=== PATIENT | male | born 1945 | race Caucasian/White ===

== ENCOUNTER 2019-12-19 07:11 | Outpatient (CLI) | payer MEDICARE, SELFPAY ==
[2019-12-19 07:33] LABS: Basophils Absolute Auto 0.04 K/mm3 (0.00-0.10); Basophils Percent Auto 0.6 % (0.0-1.0); Eosinophils Percent Auto 1.5 % (1.0-6.0); Hematocrit 34.4 % (37.0-46.0); Hemoglobin 11.8 g/dL (12.4-15.3); Immature Granulocyte Absolute 0.02 K/mm3 (0.00-0.00); Immature Granulocyte Percent A 0.3 % (0.0-0.0); Lymphocytes Absolute Auto 1.28 K/mm3 (1.10-4.50); Lymphocytes Percent Auto 19.6 % (18.0-42.0); Mean Corpuscular HGB Conc 34.3 g/dL (32.0-36.0); Mean Corpuscular Hemoglobin 31.2 pg (27.0-31.0); Mean Platelet Volume 8.6 fl (8.7-11.0); Monocytes Absolute Auto 0.77 K/mm3 (0.10-0.90); Monocytes Percent Auto 11.8 % (2.0-11.0); Neutrophils Absolute Auto 4.3 K/mm3 (1.7-7.2); Neutrophils Percent Auto 66.2 % (50.0-70.0); Platelet Count Result 324 K/mm3 (150-420); Red Blood Count 3.78 M/mm3 (4.70-6.10); Red Cell Distribution Width 12.8 % (11.6-14.4); White Blood Count 6.5 K/mm3 (4.8-10.8)
[2019-12-19 09:22] LABS: Alanine Aminotransferase 22 U/L (16-63); Albumin Level 3.9 g/dL (3.4-5.0); Alkaline Phosphatase 62 U/L (46-116); Anion Gap 9 mmol/L (8-16); Aspartate Amino Transferase 13 U/L (15-37); Bilirubin,Total 0.7 mg/dL (0.00-1.00); Blood Urea Nitrogen 18 mg/dL (7-18); Calcium 8.7 mg/dL (8.5-10.1); Carbon Dioxide 30 mmol/L (21-32); Chloride 101 mmol/L (98-108); Cholesterol 140 mg/dL (0-200); Estimated Glomerular Filt Rate 59; Glucose 90 mg/dL (70-99); HDL Direct 60 mg/dL (40-60); LDL Cholesterol Calculated 66 mg/dL (<130); Osmolality Calculated 291 mOsm/kg (285-295); Potassium 3.8 mmol/L (3.5-5.1); Sodium 140 mmol/L (136-145); Total Protein 6.8 g/dL (6.4-8.2); Triglycerides 72 mg/dL (0-150)
[2019-12-19 09:33] LABS: Prostate Specific Antigen < 0.1 ng/mL (< OR = 4.0)
== END 2019-12-19 07:12 | disposition home or self-care (01) ==
PROVIDERS: PCP Nurse Practitioner Family; Visit Provider Nurse Practitioner Family
DX: Z85.46 Personal history of malignant neoplasm of prostate (principal); I10 Essential (primary) hypertension; Z12.5 Encounter for screening for malignant neoplasm of prostate
CPT/HCPCS: 36415; 80053; 80061; 84153; 85025; G0103

== ENCOUNTER 2020-03-30 12:41 | Outpatient (CLI) | payer MEDICARE, SELFPAY ==
--- NOTE | ~2020-03-30 | XR_ITS ---
EXAMINATION: XR shoulder LT min 2V DATE: 03/30/2020 13:15 INDICATION: Polyarthritis. Left shoulder pain. TECHNIQUE: 4 views of left shoulder were obtained. COMPARISON: None. FINDINGS: Bone alignment is normal. No fracture. There is mild osteoarthritis of glenohumeral joint a nd acromioclavicular joint. There is calcific tendinitis of the rotator cuff. IMPRESSION: 1. Mild polyarticular osteoarthritis. 2. Calcific tendinitis of left rotator cuff. Reviewed, dictated and finalized at location A. PING BAG FILLER
--- NOTE | ~2020-03-30 | XR_ITS ---
XR hip BI wo pelvis DATE: 03/30/2020 13:15 INDICATION: Bilateral hip pain TECHNIQUE: AP and lateral views of each hip COMPARISON: None FINDINGS: No fracture or dislocation, avascular necrosis or bone destruction. Surgical clips overlie the pubic symphysis and right pelvis. IMPRESSION: No fracture or dislocation or bone destruction Reviewed, dictated and finalized at location A. TEACHER
--- NOTE | ~2020-03-30 | XR_ITS ---
EXAMINATION: XR shoulder RT min 2V DATE: 03/30/2020 13:14 INDICATION: Right shoulder pain. Polyarthritis. TECHNIQUE: 4 views of right shoulder were obtained. COMPARISON: None. FINDINGS: Bone alignment is normal. No fracture. Glenohumeral joint is normal. There is mild acromioc lavicular joint osteoarthritis. IMPRESSION: 1. Mild right acromioclavicular joint osteoarthritis. Reviewed, dictated and finalized at location A. EC MANAGER
== END 2020-03-30 12:42 | disposition home or self-care (01) ==
PROVIDERS: PCP Family Medicine; Visit Provider Family Medicine
DX: M13.0 Polyarthritis, unspecified (principal)
CPT/HCPCS: 73030; 73521

== ENCOUNTER 2020-04-09 10:41 | Outpatient (CLI) | payer MEDICARE, SELFPAY ==
[2020-04-09 11:47] LABS: CRP 17.8 mg/dL (0.0-0.9)
[2020-04-09 11:53] LABS: Erythrocyte Sedimentation Rate 56 mm/hr (0-20)
== END 2020-04-09 10:42 | disposition home or self-care (01) ==
PROVIDERS: PCP Family Medicine; Visit Provider Family Medicine
DX: M13.0 Polyarthritis, unspecified (principal)
CPT/HCPCS: 36415; 85652; 86140

== ENCOUNTER 2021-02-20 09:12 | Outpatient (CLI) | payer MEDICARE, SELFPAY ==
[2021-02-20 09:25] LABS: Basophils Absolute Auto 0.03 K/mm3 (0.00-0.10); Basophils Percent Auto 0.3 % (0.0-1.0); Eosinophils Absolute Auto 0.03 K/mm3 (0.02-0.50); Eosinophils Percent Auto 0.3 % (1.0-6.0); Hematocrit 35.2 % (37.0-46.0); Hemoglobin 11.9 g/dL (12.4-15.3); Immature Granulocyte Absolute 0.08 K/mm3 (0.00-0.00); Immature Granulocyte Percent A 0.7 % (0.0-0.0); Lymphocytes Absolute Auto 0.84 K/mm3 (1.10-4.50); Lymphocytes Percent Auto 7.1 % (18.0-42.0); Mean Corpuscular HGB Conc 33.8 g/dL (32.0-36.0); Mean Corpuscular Hemoglobin 31.2 pg (27.0-31.0); Mean Corpuscular Volume 92.4 fL (78.0-102.0); Mean Platelet Volume 8.1 fl (8.7-11.0); Monocytes Absolute Auto 1.06 K/mm3 (0.10-0.90); Neutrophils Absolute Auto 9.8 K/mm3 (1.7-7.2); Neutrophils Percent Auto 82.6 % (50.0-70.0); Platelet Count Result 382 K/mm3 (150-420); Red Blood Count 3.81 M/mm3 (4.70-6.10); White Blood Count 11.8 K/mm3 (4.8-10.8)
[2021-02-20 10:10] LABS: Alanine Aminotransferase 23 U/L (16-63); Albumin Level 3.9 g/dL (3.4-5.0); Alkaline Phosphatase 60 U/L (46-116); Anion Gap 9 mmol/L (8-16); Aspartate Amino Transferase 17 U/L (15-37); Bilirubin,Total 0.5 mg/dL (0.00-1.00); Blood Urea Nitrogen 16 mg/dL (7-18); Calcium 9.1 mg/dL (8.5-10.1); Carbon Dioxide 29 mmol/L (21-32); Chloride 95 mmol/L (98-108); Estimated Glomerular Filt Rate > 60; GGT 26 U/L (15-85); Glucose 74 mg/dL (70-99); Lactate Dehydrogenase 196 U/L (85-227); Osmolality Calculated 276 mOsm/kg (285-295); Potassium 3.7 mmol/L (3.5-5.1); Sodium 133 mmol/L (136-145)
[2021-02-20 10:16] LABS: Prostate Specific Antigen < 0.1 ng/mL (< OR = 4.0)
== END 2021-02-20 09:13 | disposition home or self-care (01) ==
LOC: CHSLAB 09:15
PROVIDERS: PCP Family Medicine; Visit Provider Nurse Practitioner Family
DX: C61 Malignant neoplasm of prostate (principal); M35.3 Polymyalgia rheumatica; I10 Essential (primary) hypertension
CPT/HCPCS: 36415; 80053; 82977; 83615; 84153; 85025

== ENCOUNTER 2021-06-06 08:54 | Outpatient (CLI) | payer MEDICARE, SELFPAY ==
--- NOTE | ~2021-06-06 | XR_ITS ---
EXAMINATION: XR hand BI arthritis min 3V DATE: 06/06/2021 09:27 INDICATION: Bilateral hand pain. TECHNIQUE: 4 views of the right hand and 4 views of the left hand on a total of 7 radiographs were ob tained. COMPARISON: None. FINDINGS: RIGHT HAND: Bone alignment is normal. No fracture. There is mild osteoporosis of first carpometacarpa l joint, first, second, and fourth metacarpophalangeal joints, second proximal interphalangeal joint, and fifth distal interphalangeal joint and moderate osteoarthritis of first interphalangeal joint. LEFT HAND: Bone alignment is normal. No fracture. There is mild osteoarthritis of first carpometacarp al joint and first and fourth metacarpophalangeal joints. There is moderate osteoarthritis of second and third metacarpophalangeal joints, first interphalangeal joint, and third proximal interphalangeal joint. There is mild osteoarthritis of second distal interphalangeal joint. IMPRESSION: 1. Polyarticular osteoarthritis. Reviewed, dictated and finalized at location A.
[2021-06-06 09:12] LABS: Hematocrit 28.2 % (37.0-46.0); Hemoglobin 9.1 g/dL (12.4-15.3); Mean Corpuscular HGB Conc 32.3 g/dL (32.0-36.0); Mean Corpuscular Hemoglobin 28.9 pg (27.0-31.0); Mean Corpuscular Volume 89.5 fL (78.0-102.0); Platelet Count Result 472 K/mm3 (150-420); Red Blood Count 3.15 M/mm3 (4.70-6.10); Red Cell Distribution Width 13.1 % (11.6-14.4); White Blood Count 12.8 K/mm3 (4.8-10.8)
[2021-06-06 09:52] LABS: Alanine Aminotransferase 15 U/L (16-63); Albumin Level 3.5 g/dL (3.4-5.0); Alkaline Phosphatase 59 U/L (46-116); Anion Gap 9 mmol/L (8-16); Aspartate Amino Transferase 11 U/L (15-37); Bilirubin,Total 0.4 mg/dL (0.00-1.00); Blood Urea Nitrogen 18 mg/dL (7-18); CRP 5.2 mg/dL (0.0-0.9); Calcium 8.9 mg/dL (8.5-10.1); Carbon Dioxide 27 mmol/L (21-32); Chloride 96 mmol/L (98-108); Estimated Glomerular Filt Rate > 60; Glucose 88 mg/dL (70-99); NT Pro B Type Natriuretic Pept 282 pg/mL (0-450); Osmolality Calculated 274 mOsm/kg (285-295); Potassium 3.9 mmol/L (3.5-5.1); Sodium 132 mmol/L (136-145); Total Protein 6.6 g/dL (6.4-8.2)
[2021-06-06 10:07] LABS: Rheumatoid Factor Screen Negative (Negative)
== END 2021-06-06 08:55 | disposition home or self-care (01) ==
LOC: CHSLAB 08:57
PROVIDERS: PCP Family Medicine; Visit Provider Family Medicine
DX: M79.641 Pain in right hand (principal); M79.642 Pain in left hand; M35.3 Polymyalgia rheumatica; I10 Essential (primary) hypertension; I50.9 Heart failure, unspecified
CPT/HCPCS: 36415; 73130; 80053; 83880; 85027; 86038; 86140; 86430

== ENCOUNTER 2021-07-24 14:28 | Outpatient (CLI) | payer MEDICARE, SELFPAY ==
[2021-07-24 14:50] LABS: Hematocrit 30.6 % (37.0-46.0); Hemoglobin 9.9 g/dL (12.4-15.3); Mean Corpuscular HGB Conc 32.4 g/dL (32.0-36.0); Mean Corpuscular Hemoglobin 27.6 pg (27.0-31.0); Mean Corpuscular Volume 85.2 fL (78.0-102.0); Mean Platelet Volume 8.1 fl (8.7-11.0); Platelet Count Result 421 K/mm3 (150-420); Red Blood Count 3.59 M/mm3 (4.70-6.10); Red Cell Distribution Width 14.9 % (11.6-14.4); White Blood Count 9.1 K/mm3 (4.8-10.8)
[2021-07-24 15:23] LABS: HIV 1 P24 AG Negative (Negative); HIV 1/2 AB Negative (Negative)
[2021-07-24 15:29] LABS: Thyroid Stimulating Hormone Reflex 1.01 u/IU/mL (0.36-3.74)
[2021-07-24 15:31] LABS: Alanine Aminotransferase 19 U/L (16-63); Albumin Level 3.7 g/dL (3.4-5.0); Alkaline Phosphatase 72 U/L (46-116); Anion Gap 8 mmol/L (8-16); Aspartate Amino Transferase 14 U/L (15-37); Bilirubin,Total 0.4 mg/dL (0.00-1.00); Blood Urea Nitrogen 20 mg/dL (7-18); Calcium 8.8 mg/dL (8.5-10.1); Carbon Dioxide 29 mmol/L (21-32); Chloride 99 mmol/L (98-108); Estimated Glomerular Filt Rate 60; Glucose 110 mg/dL (70-99); Osmolality Calculated 285 mOsm/kg (285-295); Potassium 3.9 mmol/L (3.5-5.1); Sodium 136 mmol/L (136-145); Total Protein 7.1 g/dL (6.4-8.2)
[2021-07-24 15:32] LABS: Prostate Specific Antigen < 0.1 ng/mL (< OR = 4.0)
[2021-07-26 12:10] LABS: NIL 0.01 IU/mL; Quantiferon TB Plus, 1T NEGATIVE (NEGATIVE); TB1-NIL 0.01 IU/mL
[2021-07-27 19:53] LABS: Hepatitis A Antibody IgM Nonreactive; Hepatitis B Core Antibody Nonreactive (Nonreactive); Hepatitis B Surface Antigen Nonreactive (Nonreactive); Hepatitis C Signal to Cutoff 0.01 ratio (<1.00); Hepatitis C Virus Antibody Nonreactive (Nonreactive)
== END 2021-07-24 14:29 | disposition home or self-care (01) ==
LOC: CHSLAB 14:30
PROVIDERS: PCP Family Medicine; Visit Provider Family Medicine
DX: R63.4 Abnormal weight loss (principal); R35.1 Nocturia; E11.9 Type 2 diabetes mellitus without complications
CPT/HCPCS: 36415; 80053; 80074; 84153; 84443; 85027; 86140; 86480; 86703

== ENCOUNTER 2022-05-13 09:23 | Outpatient (CLI) | payer MEDICARE, SELFPAY ==
[2022-05-13 09:53] LABS: Hematocrit 27.4 % (37.0-46.0); Hemoglobin 8.8 g/dL (12.4-15.3); Mean Corpuscular HGB Conc 32.1 g/dL (32.0-36.0); Mean Corpuscular Hemoglobin 26.1 pg (27.0-31.0); Mean Corpuscular Volume 81.3 fL (78.0-102.0); Mean Platelet Volume 7.9 fl (8.7-11.0); Platelet Count Result 448 K/mm3 (150-420); Red Blood Count 3.37 M/mm3 (4.70-6.10); Red Cell Distribution Width 16.6 % (11.6-14.4); White Blood Count 7.6 K/mm3 (4.8-10.8)
[2022-05-13 10:31] LABS: Alanine Aminotransferase 16 U/L (16-63); Albumin Level 3.4 g/dL (3.4-5.0); Alkaline Phosphatase 85 U/L (46-116); Anion Gap 10 mmol/L (8-16); Aspartate Amino Transferase 14 U/L (15-37); Bilirubin,Total 0.4 mg/dL (0.00-1.00); Blood Urea Nitrogen 19 mg/dL (7-18); Calcium 8.7 mg/dL (8.5-10.1); Carbon Dioxide 27 mmol/L (21-32); Chloride 99 mmol/L (98-108); Estimated Glomerular Filt Rate > 60; Glucose 111 mg/dL (70-99); Osmolality Calculated 285 mOsm/kg (285-295); Potassium 4.3 mmol/L (3.5-5.1); Sodium 136 mmol/L (136-145); Total Protein 7.1 g/dL (6.4-8.2)
== END 2022-05-13 09:24 | disposition home or self-care (01) ==
LOC: CHSLAB 09:26
PROVIDERS: PCP Family Medicine; Visit Provider Family Medicine
DX: D50.9 Iron deficiency anemia, unspecified (principal)
CPT/HCPCS: 36415; 80053; 85027

== ENCOUNTER 2022-05-14 08:53 | Outpatient (CLI) | payer MEDICARE, SELFPAY ==
[2022-05-14 09:00] LABS: Occult Blood Negative (Negative)
== END 2022-05-14 08:54 | disposition home or self-care (01) ==
LOC: CHSLAB 08:54
PROVIDERS: PCP Family Medicine; Visit Provider Family Medicine
DX: D64.9 Anemia, unspecified (principal)
CPT/HCPCS: 82272

== ENCOUNTER 2022-07-26 08:59 | Emergency (ER) | payer MEDICARE, SELFPAY ==
[2022-07-26 09:11] VITALS: BP 139/70; PULSE 67; RESP 20; TEMP 36.4; O2SAT 100
--- NOTE | 2022-07-26 09:33 | ECG_ITS ---
Measurements Intervals [place] Rate: 58 P: 70 [place]: 188 QRS: 48 QRSD: 95 T: 63 QT: 418 QTc: 413 Interpretive Statements SINUS BRADYCARDIA WITH SINUS ARRHYTHMIA EARLY PRECORDIAL R/S TRANSITION BORDERLINE ECG NO PREVIOUS ECG AVAILABLE FOR COMPARISON Electronically Signed On 07-26-2022 16:49:38 CDT by Homar Matthew D.O.
[2022-07-26 09:45] LABS: Basophils Absolute Auto 0.03 K/mm3 (0.00-0.10); Basophils Percent Auto 0.4 % (0.0-1.0); Eosinophils Absolute Auto 0.03 K/mm3 (0.02-0.50); Eosinophils Percent Auto 0.4 % (1.0-6.0); Hemoglobin 9.3 g/dL (12.4-15.3); Immature Granulocyte Absolute 0.04 K/mm3 (0.00-0.00); Immature Granulocyte Percent A 0.5 % (0.0-0.0); Lymphocytes Absolute Auto 0.91 K/mm3 (1.10-4.50); Lymphocytes Percent Auto 11.3 % (18.0-42.0); Mean Corpuscular HGB Conc 32.1 g/dL (32.0-36.0); Mean Corpuscular Hemoglobin 27.2 pg (27.0-31.0); Mean Corpuscular Volume 84.8 fL (78.0-102.0); Mean Platelet Volume 7.8 fl (8.7-11.0); Monocytes Percent Auto 6.2 % (2.0-11.0); Neutrophils Absolute Auto 6.6 K/mm3 (1.7-7.2); Neutrophils Percent Auto 81.2 % (50.0-70.0); Platelet Count Result 373 K/mm3 (150-420); Red Blood Count 3.42 M/mm3 (4.70-6.10); Red Cell Distribution Width 15.9 % (11.6-14.4); White Blood Count 8.1 K/mm3 (4.8-10.8)
[2022-07-26 10:05] LABS: Alanine Aminotransferase 16 U/L (16-63); Albumin Level 3.5 g/dL (3.4-5.0); Alkaline Phosphatase 83 U/L (46-116); Anion Gap 9 mmol/L (8-16); Aspartate Amino Transferase 13 U/L (15-37); Bilirubin,Total 0.4 mg/dL (0.00-1.00); Blood Urea Nitrogen 23 mg/dL (7-18); Calcium 8.7 mg/dL (8.5-10.1); Carbon Dioxide 27 mmol/L (21-32); Chloride 100 mmol/L (98-108); Estimated CRCL calculation 56 ml/min; Estimated Glomerular Filt Rate > 60; Glucose 106 mg/dL (70-99); Osmolality Calculated 285 mOsm/kg (285-295); Potassium 4.1 mmol/L (3.5-5.1); Sodium 136 mmol/L (136-145); Total Protein 7.3 g/dL (6.4-8.2)
[2022-07-26 10:27] LABS: Appearance Urine Clear (Clear); Bilirubin Urine Negative (Negative); Blood Urine Negative (Negative); Color Urine Yellow (Yellow); Glucose Urine UA Negative (Negative); Ketones Urine Negative (Negative); Leukocyte Esterase Ur Negative LEU/UL (Negative); Nitrate Urine Negative (Negative); Protein Urine Negative (Negative); Specific Grav Ur 1.015 (1.010-1.020); Urobilinogen Urine 0.2 mg/dL (0.2-1.0); pH Urine 6.5 (5.0-8.0)
[2022-07-26 10:30] LABS: Add Urine Microscopic? NO
--- NOTE | 2022-07-26 10:38 | ED.DIZZY ---
HPI - Dizziness General Chief Complaint: Dizziness Stated Complaint: nausea Time Seen by Provider: 07/26/22 09:04 Source: patient and family Mode of arrival: ambulatory Limitations: no limitations History of Present Illness MD elicited complaint: lightheadedness Description: sense of movement and lightheadedness Related Data Home Medications Medication Instructions Recorded Confirmed amlodipine 10 mg tablet 10 mg PO DAILY 12/15/19 07/26/22 aspirin 81 mg tablet,delayed 81 mg PO DAILY 12/15/19 07/26/22 release (Adult Aspirin Regimen) minoxidil 2.5 mg tablet 2.5 mg PO DAILY 12/15/19 07/26/22 potassium chloride 20 mEq 20 meq PO DAILY 12/15/19 07/26/22 tablet,extended release telmisartan 80 mg tablet 80 mg PO DAILY 12/15/19 07/26/22 furosemide 20 mg tablet 10 mg PO QAM 07/24/21 07/26/22 Allergies Allergy/AdvReac Type Severity Reaction Status Date / Time No Known Allergies Allergy Verified 06/18/22 07:40 Review of Systems Review of Systems: All systems reviewed & are unremarkable except as noted in HPI and below PMFSH Past Medical History Medical History Cochlear implant in place HTN (hypertension) Prostate cancer Dx'd in 2001, in remission Family History Family History Mother Hypertension, Onset Age: 87 Family history of kidney disease, Onset Age: 87 Patient's mother is , Onset Age: 87 Father Family history of kidney disease, Onset Age: 89 Family history of coronary artery disease, Onset Age: 89 Patient's father is , Onset Age: 89 Social History Social History Smoking status: Former smoker Tobacco type: cigarettes Smoking end date: 03/02/89 Alcohol intake: never Substance use: never Substance use type: does not use Lack of Transportation: No Lack of Food: Never True Current Housing: I Have Housing Concerned About Future Housing: No Difficulty Paying Gas/Electric Bills: No Difficulty Paying for Meds: No Currently Unemployed: No Education: Master's Degree or Higher Difficulty w/ Childcare or Family Care: No Living arrangements: alone Occupation/Education: retired Exam Const: General: healthy appearing Nutritional Appearance: well nourished Orientation/consciousness: patient oriented x3 Limitations: no limitations HENMT: Head: normal to inspection Eyes: Conjunctivae: conjunctivae normal Pupils: Equal, round and reactive pupils present EOM: EOMs intact bilaterally Neck: Neck: normal visual inspection Chest: Chest palpation & inspection: normal inspection of the chest Resp: Effort & Inspection: normal respiratory effort Auscultation: clear to auscultation bilaterally Cardio: Rate: regular rate Rhythm: regular rhythm GI: Auscultation: normal bowel sounds : General: Yes bladder normal to palpation Male General Exam: Yes normal external exam Skin: General skin exam: normal color Rashes: no rashes Neuro: General: patient oriented x3 Cranial nerves: Yes Nystagmus not present Speech: normal speech Extrem: General: normal to inspection Psych: Mental Status: mental status grossly normal Affect: normal affect Course Course Emergency Course: Labs reviewed with patient and family patient's family discussed concerns about him living alone and advised patient to follow with primary to our help with some issues of of lightheadedness and concerns for falls. Otherwise EKG with normal sinus rhythm labs reviewed his H&H is stable with the rest of his blood work and urinary within normal limits. Patient's earlier symptoms have subsequently subsided and patient feels like he is back to his baseline. Vital Signs Vital signs: Vital Signs Temperature 36.4 C L 07/26/22 09:11 Pulse Rate 67 07/26/22 09:11 Respiratory Rate 20 07/26
[2022-07-26 11:07] VITALS: BP 137/67; PULSE 62; RESP 20; TEMP 36.9; O2SAT 100
== END 2022-07-26 11:11 | disposition home or self-care (01) ==
PROVIDERS: Emergency Provider Emergency Medicine; PCP Family Medicine
DX: D50.9 Iron deficiency anemia, unspecified (principal); R42 Dizziness and giddiness; I10 Essential (primary) hypertension; Z85.46 Personal history of malignant neoplasm of prostate; Z96.21 Cochlear implant status; Z87.891 Personal history of nicotine dependence; Z79.82 Long term (current) use of aspirin
CPT/HCPCS: 36415; 80053; 81003; 83605; 85025; 93005; 99283

== ENCOUNTER 2022-09-24 09:30 | Outpatient (CLI) | payer MEDICARE, SELFPAY ==
[2022-09-24 09:43] LABS: Basophils Absolute Auto 0.05 K/mm3 (0.00-0.10); Basophils Percent Auto 0.8 % (0.0-1.0); Eosinophils Absolute Auto 0.14 K/mm3 (0.02-0.50); Eosinophils Percent Auto 2.3 % (1.0-6.0); Hematocrit 28.4 % (37.0-46.0); Hemoglobin 9.3 g/dL (12.4-15.3); Immature Granulocyte Absolute 0.03 K/mm3 (0.00-0.00); Immature Granulocyte Percent A 0.5 % (0.0-0.0); Lymphocytes Absolute Auto 1.18 K/mm3 (1.10-4.50); Lymphocytes Percent Auto 19.3 % (18.0-42.0); Mean Corpuscular HGB Conc 32.7 g/dL (32.0-36.0); Mean Corpuscular Hemoglobin 27.9 pg (27.0-31.0); Mean Corpuscular Volume 85.3 fL (78.0-102.0); Mean Platelet Volume 7.8 fl (8.7-11.0); Monocytes Absolute Auto 0.76 K/mm3 (0.10-0.90); Monocytes Percent Auto 12.5 % (2.0-11.0); Neutrophils Absolute Auto 3.9 K/mm3 (1.7-7.2); Neutrophils Percent Auto 64.6 % (50.0-70.0); Platelet Count Result 340 K/mm3 (150-420); Red Blood Count 3.33 M/mm3 (4.70-6.10); Red Cell Distribution Width 15.3 % (11.6-14.4); White Blood Count 6.1 K/mm3 (4.8-10.8)
[2022-09-24 10:31] LABS: Occult Blood Negative (Negative)
[2022-09-24 10:39] LABS: Ferritin 38 ng/mL (26-388); Iron 38 ug/dL (65-175); Percent Iron Saturation 15 % (12-57)
== END 2022-09-24 09:31 | disposition home or self-care (01) ==
LOC: CHSLAB 09:32
PROVIDERS: PCP Family Medicine; Visit Provider Family Medicine
DX: D50.9 Iron deficiency anemia, unspecified (principal); R19.7 Diarrhea, unspecified
CPT/HCPCS: 36415; 82272; 82728; 83540; 83550; 85025

== ENCOUNTER 2022-10-07 10:22 | Outpatient (CLI) | payer MEDICARE, SELFPAY ==
[2022-10-07 10:28] VITALS: BMI 25.7
[2022-10-07] MEDS: IRON SUCROSE COMPLEX 200 MG in SODIUM CHLORIDE 0.9% IV 250 ML 166.67 MG IVPB (10:40)
[2022-10-07 10:43] VITALS: BP 140/59; PULSE 78; RESP 14; TEMP 35.9; O2SAT 100
--- NOTE | 2022-10-07 12:12 | PC.NURSE ---
Patient here for #1 of 3 IV Venofer infusions. Education given. All concerns answered. IV Venofer administered. SEE MAR. Tolerated well. Will return Thu10/10/22 for #2 of 3. Safe exit of hospital per amb/self.
== END 2022-10-07 10:23 | disposition home or self-care (01) ==
PROVIDERS: PCP Family Medicine; Visit Provider Family Medicine
DX: D50.9 Iron deficiency anemia, unspecified (principal)
CPT/HCPCS: 96365; 96366; J1756; J7050

== ENCOUNTER 2022-10-10 09:53 | Outpatient (CLI) | payer MEDICARE, SELFPAY ==
--- NOTE | 2022-10-10 10:00 | PC.NURSE ---
Here for outpatient iron
[2022-10-10] MEDS: IRON SUCROSE COMPLEX 200 MG in SODIUM CHLORIDE 0.9% IV 250 ML 166.67 MG IVPB (10:23)
[2022-10-10 10:29] VITALS: BMI 24.7
[2022-10-10 10:30] VITALS: BP 120/56; PULSE 67; RESP 18; TEMP 36.4; O2SAT 95
--- NOTE | 2022-10-10 12:00 | PC.NURSE ---
infusion completed, tolerated well, ambulatory for discharge to home, saline lock discontinued, no bleeding
== END 2022-10-10 09:54 | disposition home or self-care (01) ==
LOC: CHSTREATRM 09:56
PROVIDERS: PCP Family Medicine; Visit Provider Family Medicine
DX: D50.9 Iron deficiency anemia, unspecified (principal)
CPT/HCPCS: 96365; 96366; J1756; J7050

== ENCOUNTER 2022-10-13 10:36 | Outpatient (CLI) | payer MEDICARE, SELFPAY ==
[2022-10-13 10:56] VITALS: BP 126/61; PULSE 60; RESP 14; TEMP 36.4; O2SAT 100
[2022-10-13] MEDS: IRON SUCROSE COMPLEX 200 MG in SODIUM CHLORIDE 0.9% IV 250 ML 166.67 MG IVPB (11:00)
[2022-10-13 11:02] VITALS: BMI 25.7
--- NOTE | 2022-10-13 12:33 | PC.NURSE ---
Patient here for #3 of 3 IV Venofer infusion. No concerns voiced. Reports did very well with the last two infusions. IV Venofer administered. SEE MAR. Tolerated well. Safe exit of hospital per self/amb.
== END 2022-10-13 10:37 | disposition home or self-care (01) ==
LOC: CHSTREATRM 10:38
PROVIDERS: PCP Family Medicine; Visit Provider Family Medicine
DX: D50.9 Iron deficiency anemia, unspecified (principal)
CPT/HCPCS: 96365; 96366; J1756; J7050

== ENCOUNTER 2022-11-13 08:53 | Outpatient (CLI) | payer MEDICARE, SELFPAY ==
[2022-11-13 09:06] LABS: Basophils Absolute Auto 0.04 K/mm3 (0.00-0.10); Basophils Percent Auto 0.7 % (0.0-1.0); Eosinophils Absolute Auto 0.09 K/mm3 (0.02-0.50); Eosinophils Percent Auto 1.5 % (1.0-6.0); Hematocrit 31.2 % (37.0-46.0); Hemoglobin 10.1 g/dL (12.4-15.3); Immature Granulocyte Absolute 0.02 K/mm3 (0.00-0.00); Immature Granulocyte Percent A 0.3 % (0.0-0.0); Lymphocytes Absolute Auto 1.25 K/mm3 (1.10-4.50); Lymphocytes Percent Auto 20.4 % (18.0-42.0); Mean Corpuscular HGB Conc 32.4 g/dL (32.0-36.0); Mean Corpuscular Hemoglobin 29.1 pg (27.0-31.0); Mean Corpuscular Volume 89.9 fL (78.0-102.0); Mean Platelet Volume 8.8 fl (8.7-11.0); Monocytes Percent Auto 9.8 % (2.0-11.0); Neutrophils Absolute Auto 4.1 K/mm3 (1.7-7.2); Neutrophils Percent Auto 67.3 % (50.0-70.0); Platelet Count Result 326 K/mm3 (150-420); Red Blood Count 3.47 M/mm3 (4.70-6.10); Red Cell Distribution Width 15.8 % (11.6-14.4); White Blood Count 6.1 K/mm3 (4.8-10.8)
[2022-11-13 10:20] LABS: Ferritin 139 ng/mL (26-388); Iron 56 ug/dL (65-175); Percent Iron Saturation 27 % (12-57)
== END 2022-11-13 08:54 | disposition home or self-care (01) ==
LOC: CHSLAB 08:54
PROVIDERS: PCP Family Medicine; Visit Provider Family Medicine
DX: D50.9 Iron deficiency anemia, unspecified (principal)
CPT/HCPCS: 36415; 82728; 83540; 83550; 85025

== ENCOUNTER 2023-07-15 12:35 | Outpatient (CLI) | payer MEDICARE, SELFPAY ==
[2023-07-15 12:57] LABS: Basophils Absolute Auto 0.04 K/mm3 (0.00-0.10); Basophils Percent Auto 0.6 % (0.0-1.0); Eosinophils Absolute Auto 0.14 K/mm3 (0.02-0.50); Eosinophils Percent Auto 2.3 % (1.0-6.0); Hematocrit 33.2 % (37.0-46.0); Hemoglobin 10.8 g/dL (12.4-15.3); Immature Granulocyte Absolute 0.02 K/mm3 (0.00-0.00); Immature Granulocyte Percent A 0.3 % (0.0-0.0); Lymphocytes Absolute Auto 1.26 K/mm3 (1.10-4.50); Lymphocytes Percent Auto 20.3 % (18.0-42.0); Mean Corpuscular HGB Conc 32.5 g/dL (32-36); Mean Corpuscular Hemoglobin 29.1 pg (27.0-31.0); Mean Corpuscular Volume 89.5 fL (78.0-102.0); Mean Platelet Volume 8.5 fl (8.7-11.0); Monocytes Absolute Auto 0.63 K/mm3 (0.10-0.90); Monocytes Percent Auto 10.1 % (2.0-11.0); Neutrophils Absolute Auto 4.12 K/mm3 (1.70-7.20); Neutrophils Percent Auto 66.4 % (50.0-70.0); Platelet Count Result 316 K/mm3 (150-420); Red Blood Count 3.71 M/mm3 (4.70-6.10); Red Cell Distribution Width 13.7 % (11.6-14.4); White Blood Count 6.2 K/mm3 (4.8-10.8)
[2023-07-15 13:40] LABS: Ferritin 22 ng/mL (26-388); Iron 39 ug/dL (65-175); Percent Iron Saturation 14 % (12-57)
== END 2023-07-15 12:36 | disposition home or self-care (01) ==
LOC: CHSLAB 12:37
PROVIDERS: PCP Family Medicine; Visit Provider Family Medicine
DX: D50.9 Iron deficiency anemia, unspecified (principal); I10 Essential (primary) hypertension
CPT/HCPCS: 36415; 82728; 83540; 83550; 85025

== ENCOUNTER 2023-07-23 09:50 | Outpatient (CLI) | payer MEDICARE, SELFPAY ==
[2023-07-23 10:00] VITALS: BP 141/63; PULSE 66; RESP 18; TEMP 36.4; O2SAT 100
[2023-07-23 10:14] VITALS: BMI 26.2
[2023-07-23] MEDS: IRON SUCROSE COMPLEX 200 MG in SODIUM CHLORIDE 0.9% IV 250 ML 125 MG IVPB (10:32)
--- NOTE | 2023-07-23 10:57 | PC.NURSE ---
1000 Patient ambulated to room 203 with cane without difficulty. Explained to patient process of infusion and what we would be doing today. He states understanding.
[2023-07-23 13:24] VITALS: BP 141/62; PULSE 65; RESP 16; TEMP 36.3; O2SAT 100
--- NOTE | 2023-07-23 13:33 | PC.NURSE ---
1330 Patient ambulated to elevator with cane without difficulty. IV removed.
== END 2023-07-23 09:51 | disposition home or self-care (01) ==
LOC: CHSTREATRM 09:53
PROVIDERS: PCP Family Medicine; Visit Provider Family Medicine
DX: D50.9 Iron deficiency anemia, unspecified (principal)
CPT/HCPCS: 96365; 96366; J1756; J7050

== ENCOUNTER 2023-07-28 09:46 | Outpatient (CLI) | payer MEDICARE, SELFPAY ==
[2023-07-28 09:59] VITALS: BMI 26.4
[2023-07-28 10:01] VITALS: BP 145/69; PULSE 69; RESP 14; TEMP 36.1
[2023-07-28] MEDS: IRON SUCROSE COMPLEX 200 MG in SODIUM CHLORIDE 0.9% IV 250 ML 125 MG IVPB (10:19)
--- NOTE | 2023-07-28 10:49 | PC.NURSE ---
0708 Patient ambulated to room with cane. Alert and oriented. Explained call light and TV controls offered a drink and lunch both declined at this time.
--- NOTE | 2023-07-28 11:48 | PC.NURSE ---
Sitting in chair watching TV. IV infusing without difficulty.
--- NOTE | 2023-07-28 12:43 | PC.NURSE ---
1235 IV removed intact. Patient ambulated to elevator with cane without any difficulty.
== END 2023-07-28 09:47 | disposition home or self-care (01) ==
LOC: CHSTREATRM 09:49
PROVIDERS: PCP Family Medicine; Visit Provider Family Medicine
DX: D50.9 Iron deficiency anemia, unspecified (principal)
CPT/HCPCS: 96365; 96366; J1756; J7050

== ENCOUNTER 2023-07-31 09:46 | Outpatient (CLI) | payer MEDICARE, SELFPAY ==
[2023-07-31 09:55] VITALS: BMI 26.4
[2023-07-31 09:58] VITALS: BP 137/62; PULSE 66; RESP 14; TEMP 36.1; O2SAT 99
[2023-07-31] MEDS: IRON SUCROSE COMPLEX 200 MG in SODIUM CHLORIDE 0.9% IV 250 ML 125 MG IVPB (10:27)
== END 2023-07-31 09:47 | disposition home or self-care (01) ==
LOC: CHSTREATRM 09:48
PROVIDERS: PCP Family Medicine; Visit Provider Family Medicine
DX: D50.9 Iron deficiency anemia, unspecified (principal)
CPT/HCPCS: 96365; 96367; J1756

== ENCOUNTER 2023-10-17 23:59 | Emergency (ER) | payer MEDICARE, SELFPAY ==
[2023-10-18 00:01] VITALS: BP 167/81; PULSE 86; RESP 18; TEMP 36.2; O2SAT 95
--- NOTE | 2023-10-18 00:35 | ED.GENADULT ---
HPI - General Adult General Chief complaint: Urogenital-Male Stated complaint: blood in urine Time Seen by Provider: 10/18/23 00:15 History of Present Illness HPI narrative: 78-year-old man with history of hypertension, dependent edema, iron deficient anemia, prostate cancer status post prostatectomy and radiation in 2001 subsequent history of hematuria bladder outlet obstruction presents to the emergency department with a 12 hour history of urinary retention. patient reports that earlier in the day at the urge to urinate but was initially unable to he then subsequently passed several drops of blood in any longer blood clot before initiating his ordinary urine stream. He then went to bed woke up needing to urinate and was completely unable to prompting him to come to the emergency department. The patient reports 2-3 similar episodes in the past which required him to have a Briceno catheter and then subsequently to undergo cystoscopy. patient has had several urologists over the years who over tired. He does not currently have a urologist. He does have a local primary care physician. Remainder of ROS was negative for fever, chills, nausea, vomiting, headache, vision changes, chest pain, sob, abdominal pain, or changes in diet, or bowel habits. Related Data Home Medications Medication Instructions Recorded Confirmed amlodipine 10 mg tablet 10 mg PO DAILY 12/15/19 07/31/23 minoxidil 2.5 mg tablet 2.5 mg PO DAILY 12/15/19 07/31/23 potassium chloride 20 mEq 20 meq PO DAILY 12/15/19 07/31/23 tablet,extended release telmisartan 80 mg tablet 80 mg PO DAILY 12/15/19 07/31/23 furosemide 20 mg tablet 10 mg PO QAM 07/24/21 07/31/23 Allergies Allergy/AdvReac Type Severity Reaction Status Date / Time No Known Allergies Allergy Verified 11/13/22 07:20 [facility] Past Medical History Medical History Cochlear implant in place HTN (hypertension) Prostate cancer Dx'd in 2001, in remission Family History Family History Mother Hypertension, Onset Age: 87 Family history of kidney disease, Onset Age: 87 Patient's mother is , Onset Age: 87 Father Family history of kidney disease, Onset Age: 89 Family history of coronary artery disease, Onset Age: 89 Patient's father is , Onset Age: 89 Social History Social History Smoking status: Former smoker Tobacco type: cigarettes Smoking end date: 03/02/89 Alcohol intake: never Substance use: never Substance use type: does not use Lack of Transportation: No Lack of Food: Never True Current Housing: I Have Housing Concerned About Future Housing: No Difficulty Paying Gas/Electric Bills: No Difficulty Paying for Meds: No Currently Unemployed: No Education: Master's Degree or Higher Difficulty w/ Childcare or Family Care: No Living arrangements: alone Occupation/Education: retired Exam Narrative: GEN: Awake, alert, and appropriate to situation. Well appearing, well nourished, nontoxic, NAD. HEENT: No rhinorrhea noted, mucous membranes moist. No scleral icterus or conjunctival injection. CV: Normal rate, regular rhythm, S1S2 no M/G/R. 2+ distal pulses all extremities. 1+ nonpitting peripheral edema noted. PULM: Non-labored respiration. Clear to auscultation bilaterally. No wheezes, rales, rhonchi. GI: Mild suprapubic tenderness otherwise. Abdomen soft, non -tender to palpation. No rigidity, distention or guarding.? NEURO: Normal speech. No lateralizing or focal deficits noted. Course Vital Signs Vital signs: Vital Signs Temperature 36.2 C L 10/18/23 00:01 Pulse Rate 86 10/18/23 00:01 Respiratory Rate 18 10/18/23 00:01 Blood Pressure 167/81 H 10/18/23 00:01 Pulse Oximetry 95 10/18/23 00:01 Oxygen Delivery Room Air
[2023-10-18 01:03] LABS: Hematocrit 33.2 % (37.0-46.0); Mean Corpuscular HGB Conc 33.1 g/dL (32-36); Mean Corpuscular Hemoglobin 29.6 pg (27.0-31.0); Mean Corpuscular Volume 89.5 fL (78.0-102.0); Mean Platelet Volume 8.5 fl (8.7-11.0); Platelet Count Result 290 K/mm3 (150-420); Red Blood Count 3.71 M/mm3 (4.70-6.10); Red Cell Distribution Width 13.8 % (11.6-14.4); White Blood Count 7.1 K/mm3 (4.8-10.8)
[2023-10-18 01:14] LABS: Anion Gap 10 mmol/L (4-12); Blood Urea Nitrogen 22 mg/dL (7-18); Calcium 8.6 mg/dL (8.5-10.1); Carbon Dioxide 27 mmol/L (21-32); Chloride 98 mmol/L (98-108); Estimated CRCL calculation 45 ml/min; Estimated Glomerular Filt Rate 51; Glucose 104 mg/dL (70-99); Osmolality Calculated 283 mOsm/kg (285-295); Potassium 3.8 mmol/L (3.5-5.1); Sodium 135 mmol/L (136-145)
[2023-10-18 01:36] LABS: Add Urine Microscopic? YES; Bilirubin Urine Negative (Negative); Blood Urine 1+ (Negative); Glucose Urine UA Negative (Negative); Ketones Urine Negative (Negative); Leukocyte Esterase Ur Negative (Negative); Nitrate Urine Negative (Negative); Protein Urine 2+ (Negative); Urobilinogen Urine 0.2 mg/dL (0.2-1.0)
[2023-10-18 01:38] LABS: Appearance Urine Cloudy (Clear); Color Urine Red (Yellow); RBC Urine >100 /hpf (0-2)
[2023-10-21 12:51] LABS: Iron 43 ug/dL (65-175)
== END 2023-10-18 02:48 | disposition home or self-care (01) ==
PROVIDERS: Nurse Practitioner Family; Emergency Provider Family Medicine; PCP Family Medicine
DX: R33.9 Retention of urine, unspecified (principal); I10 Essential (primary) hypertension; Z85.46 Personal history of malignant neoplasm of prostate; Z87.891 Personal history of nicotine dependence
CPT/HCPCS: 36415; 80048; 81001; 83540; 85027; 99283

== ENCOUNTER 2023-12-03 07:20 | Outpatient (CLI) | payer MEDICARE, SELFPAY ==
--- NOTE | ~2023-12-03 | CT_ITS ---
CT of the Abdomen and Pelvis: Indication: Hematuria Technique: 2.5 mm axial scans were obtained through the abdomen and pelvis prior to and following in travenous administration of 130 cc of Omnipaque 350. Dose reduction technique was used on this scan b y utilizing automated exposure control and iterative reconstruction technique. The dose-length produc t (DLP) was 1355.39 mGy-cm. Findings: Scans through the lung bases are unremarkable. The liver, spleen, pancreas, gallbladder, adrenals and kidneys are within normal limits. There are at herosclerotic calcifications of the aorta. No lymphadenopathy. No bowel obstruction or bowel wall thickening. Extensive stool suggests constipation. Images through the pelvis were performed. Urinary bladder unremarkable. No pelvic mass seen. No ascit es. Impression: No etiology for hematuria. Constipation. Reviewed, dictated and finalized at [facility]. Impression: No etiology for hematuria. Constipation.
[2023-12-03 07:45] LABS: Estimated Glomerular Filt Rate 54
[2023-12-07 14:04] LABS: PSA, Free <0.1 ng/mL; PSA, Total <0.1 ng/mL (< OR = 4.0); Percent Free Prostate Spec Ag UNABLE TO CALCULATE % (calc) (>25)
== END 2023-12-03 07:21 | disposition home or self-care (01) ==
PROVIDERS: PCP Family Medicine; Visit Provider Urology
DX: R97.20 Elevated prostate specific antigen [PSA] (principal); R31.9 Hematuria, unspecified; K59.00 Constipation, unspecified
CPT/HCPCS: 74178; 84153; 84154; Q9967

== ENCOUNTER 2024-03-10 09:25 | Outpatient (CLI) | payer MEDICARE, SELFPAY ==
[2024-03-10 09:54] LABS: Basophils Absolute Auto 0.03 K/mm3 (0.00-0.10); Basophils Percent Auto 0.6 % (0.0-1.0); Hematocrit 32.2 % (37.0-46.0); Hemoglobin 10.7 g/dL (12.4-15.3); Immature Granulocyte Absolute 0.01 K/mm3 (0.00-0.00); Immature Granulocyte Percent A 0.2 % (0.0-0.0); Lymphocytes Absolute Auto 1.08 K/mm3 (1.10-4.50); Lymphocytes Percent Auto 21.1 % (18.0-42.0); Mean Corpuscular HGB Conc 33.2 g/dL (32-36); Mean Corpuscular Hemoglobin 29.9 pg (27.0-31.0); Mean Corpuscular Volume 89.9 fL (78.0-102.0); Monocytes Absolute Auto 0.63 K/mm3 (0.10-0.90); Monocytes Percent Auto 12.3 % (2.0-11.0); Neutrophils Absolute Auto 3.26 K/mm3 (1.70-7.20); Neutrophils Percent Auto 63.8 % (50.0-70.0); Platelet Count Result 254 K/mm3 (150-420); Red Blood Count 3.58 M/mm3 (4.70-6.10); Red Cell Distribution Width 13.3 % (11.6-14.4); White Blood Count 5.1 K/mm3 (4.8-10.8)
[2024-03-10 10:47] LABS: Ferritin 66 ng/mL (26-388); Iron 88 ug/dL (65-175); Percent Iron Saturation 35 % (12-57)
== END 2024-03-10 09:26 | disposition home or self-care (01) ==
LOC: CHSLAB 09:27
PROVIDERS: PCP Family Medicine; Visit Provider Family Medicine
DX: D50.9 Iron deficiency anemia, unspecified (principal)
CPT/HCPCS: 36415; 82728; 83540; 83550; 85025

== ENCOUNTER 2024-09-16 14:13 | Outpatient (CLI) | payer MEDICARE, SELFPAY ==
--- OUTSIDE RECORDS SUMMARY | 2024-09-16 14:16 | XMS_ITS | Clinical Summary ---
Author Organization [facility] [address] Address [address] [place] [address] Care Team Providers Care Gas Station Manager Name Role Phone Krishan Jurado Primary Care Provider Allergies No known active allergies Medications cholecalcifero l (VITAMIN D-3) 1,000 unit tablet Take 1 tablet (1,000 Units total) by mouth daily Active multivitamin capsule Take 1 capsule by mouth daily Active glucosamine-ch ondroitin 250-200 mg tablet Take by mouth Active Qe-O-khajk-B12 -L.acid,plan-i nu 65 mg iron- 50 mg-1 mg DFE capsule Take 1 tablet by mouth daily Active amLODIPine (NORVASC) 10 mg tablet TAKE 1 TABLET BY MOUTH EVERY DAY 90 tablet 3 4 Active tamsulosin (FLOMAX) 0.4 mg extended release capsule 4 Active iron bis-glycinat/v it C/FA/B12 (GENTLE IRON ORAL) Take 25 mg by mouth 3 (three) times a day Active minoxidiL (LONITEN) 2.5 mg tablet TAKE 1 TABLET BY MOUTH EVERY DAY 90 tablet 3 5 Active furosemide (LASIX) 20 mg tablet TAKE 1 TABLET BY MOUTH EVERY DAY 90 tablet 3 5 Active Klor-Con M20 20 mEq CR tablet TAKE 1 TABLET BY MOUTH EVERY DAY 90 tablet 3 5 Active telmisartan (MICARDIS) 80 mg tablet TAKE 1 TABLET BY MOUTH EVERY DAY 90 tablet 1 5 Active telmisartan (MICARDIS) 80 mg tablet TAKE 1 TABLET BY MOUTH EVERY DAY 90 tablet 1 5 09/06/19 25 Discontinued Active Problems Problem Noted Date Diagnosed Date Essential hypertension 04/14/2017 Inguinal pain 07/01/2010 Surgical History Surgery Date Site/Laterality Comments EYE SURGERY HERNIA REPAIR Medical History Medical History Date Comments Hypertension Cancer (HCC) Allergic rhinitis Family History Medical History Relation Name Comments Kidney failure Father Stroke Father No Known Problems Mother Heart failure Paternal Grandfather Stroke Paternal Grandmother Kidney disease Sister Relation Name Status Comments Father Mother Paternal Grandfather Paternal Grandmother Sister Alive Social History Tobacco Use Types Packs/Day Years Used Date Smoking Tobacco: Former Smokeless Tobacco: Never Tobacco Cessation:Counseling Given: Not Answered Alcohol Use Standard Drinks/Week Comments No 0 (1 standard drink = 0.6 oz pur e alcohol) Personal Safety Answer Date Recorded Getting School Help Needed Not on file 03/11 Sex and Gender Information Value Date Recorded Sex Assigned at Not on file 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 Gender Identity Not on file Sexual Orientation Not on file Obstetrics History Last Filed Vital Signs Vital Sign Reading Time Taken Comments Blood Pressure 122/72 11/17/2023 8:17 AM CDT Pulse 61 11/17/2023 8:17 AM CDT Temperature - - Respiratory Rate 12 05/03/2020 8:35 AM RAIL GRINDER Oxygen Saturation 99% 11/17/2023 8:17 AM CDT Inhaled Oxygen Concentration - - Weight 91.2 kg (201 lb) 11/17/2023 8:17 AM CDT Height 185.4 cm (6' 1) 11/17/2023 8:17 AM CDT Body Mass Index 26.52 11/17/2023 8:17 AM CDT Plan of Treatment Health Maintenance Due Date Last Done Comments Depression Screening 1944 Fall Risk Assessment 1945 DTaP/Tdap/Td Vaccine (1 - Tdap) 06/30/1955 Hepatitis B Screening 1962 Zoster Vaccine (1 of 2) 1994 Well Visit 65+ 2009 Influenza Vaccine (#1) 2024 , 12/17/2018, 12/21/2017, Additional history exists Pneumococcal vaccine 65+ Completed 12/27/2016, 12/01 Insurance MEDICARE [facility] MEDICARE [facility] MEDICARE [facility] Care Teams Gas Station Manager Relationship Specialty Start Date End Date Krishan Jurado DO [address] [place] [address] PCP - General Family Medicine 05/03/20
--- OUTSIDE RECORDS SUMMARY | 2024-09-16 14:16 | XMS_ITS | Referral Summary ---
Author Organization [facility] [address] Address [address] [place] [address] Care Team Providers Care Thickener Operator Name Role Phone VenkatabronwynKathya cnaalessh Karan Primary Care Provider Allergies No known active allergies Medications cholecalcifero l (VITAMIN D-3) 1,000 unit tablet Take 1 tablet (1,000 Units total) by mouth daily Active multivitamin capsule Take 1 capsule by mouth daily Active glucosamine-ch ondroitin 250-200 mg tablet Take by mouth Active Dn-R-pzrmm-B12 -L.acid,plan-i nu 65 mg iron- 50 mg-1 [...] Date Essential hypertension 04/14/2017 Inguinal pain 07/01/2010 Social History Tobacco Use Types Packs/Day Years [...] on file Legal Sex Male 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 Gender Identity Not on file Sexual Orientation Not on file Last Filed Vital Signs Vital Sign Reading Time Taken Comments Blood Pressure 122/72 11/17/2023 8:17 AM CDT Pulse 61 11/17/2023 8:17 AM CDT Temperature - - Respiratory Rate 12 05/03/2020 8:35 AM NATURAL HISTORY COLLECTIONS CURATOR Oxygen Saturation 99% 11/17/2023 8:17 AM CDT Inhaled Oxygen Concentration - - Weight 91.2 kg (201 lb) 11/17/2023 8:17 AM CDT Height 185.4 cm (6' 1) 11/17/2023 8:17 AM CDT Body Mass Index 26.52 11/17/2023 8:17 AM CDT Plan of Treatment Not on file Insurance MEDICARE [employer]ARE [facility] Care Teams Thickener Operator Relationship Specialty Start Date End Date Krishan Jurado DO [address] [place] [address] PCP - General Family Medicine 05/03/20
--- OUTSIDE RECORDS SUMMARY | 2024-09-16 14:16 | XMS_ITS | Encounter Summary ---
Author Organization [facility] Address [facility] [place] [address] Care Team Providers Care Biscuitware Brusher Name Role Phone Krishan Jurado DO Primary Care Provider [phone] Encounter Details Date Type Department Care Team (Latest Contact Info) Description 01/05/2018 Abstract [facility] , Payam Zamudio MD Social History Tobacco Use Types Packs/Day Years Used Date Smoking Tobacco: Never Assessed Sex and Gender Information Value Date Recorded Sex Assigned at Not on file Legal Sex Male 8:00 PM CDT Gender Identity Not on file Sexual Orientation Not on file documented as of this encounter Plan of Treatment Not on file documented as of this encounter Visit Diagnoses Not on filedocumented in this encounter Care Teams Biscuitware Brusher Relationship Specialty Start Date End Date Krishan Jurado DO [address] [place] [address] PCP - General FAMILY PRACTICE 01/14/22 documented as of this encounter
--- OUTSIDE RECORDS SUMMARY | 2024-09-16 14:16 | XMS_ITS | Patient Health Record ---
Author Organization [facility] Address [address] [place], [place] [id number] Care Team Providers Care Steel Manager Name Role Phone KATHRIN MARIN Unavailable [phone] Krishan Jurado Unavailable Unavailable SENIA RICHARDS Unavailable [phone] FRAN TEAGUE Unavailable [phone] Allergies No Known Allergies Reason For Referral No Information Medications Medication SIG (Take, Route, Frequency, Duration) Notes Start Date End Date Status Klor-Con M20 20 MEQ 1 tablet with food Orally Once a day Active Glucosamine-Chondroitin 250-200 MG as directed Orally Active Multivitamin - 1 tablet Orally Once a day Active Minoxidil 2.5 MG 1 tablet Orally Twic e a day Active Telmisartan 80 MG 1 tablet Orally Once a day Active amLODIPine Benzoate 1 MG/ML 5 mL Orally Once a day Active Cholecalciferol 25 MCG (1000 UT) 1 capsule Orally Once a day Active Aspirin 81 81 MG 1 tablet Orally Once a day Active Furosemide 20 MG 1 tablet Orally Once a day Active Vital Signs Head Circumference 73 in 10/22/2023 Weight-kg 90.72 kg 08/11/2024 Weight 200 lbs 08/11/2024 Encounters Encounter Location Date Provider Diagnosis [facility] [address] [place], [place] [id number] 08/11/2024 RFAN TEAGUE Tinea unguium B35.1 ; Pain in right foot M79.671 ; Pain in left foot M79.672 ; Atherosclerosis of [place] arteries of extremities with intermittent claudication, bilateral legs I70.213 ; Acquired keratosis [keratoderma] palmaris et plantaris L85.1 ; Allergic contact dermatitis due to plants, except food L23.7 and Localized edema R60.[address] [id number] 10/22/2023 SENIA NATHALIAGABBYBAILEY Unspecified atherosclerosis of [place] arteries of extremities, bilateral legs I70.203 ; Other hammer toe(s) (acquired), right foot M20.41 ; Other hammer toe(s) (acquired), left foot M20.42 ; Tinea unguium B35.1 ; Pain in right toe(s) M79.674 ; Pain in left toe(s) M79.675 and Acquired keratosis [keratoderma] palmaris et plantaris L85.[address] [id number] 12/24/2023 SENIA RICHARDS Other hammer toe(s) (acquired), right foot M20.41 ; Tinea unguium B35.1 ; Other hammer toe(s) (acquired), left foot M20.42 ; Pain in right toe(s) M79.674 ; Pain in left toe(s) M79.675 ; Unspecified atherosclerosis of [place] arteries of extremities, bilateral legs I70.203 and Acquired keratosis [keratoderma] palmaris et plantaris L85.[address] [id number] 03/03/2024 KATHRIN SNOOK Tinea unguium B35.1 ; Pain in right foot M79.671 ; Pain in left foot M79.672 ; Atherosclerosis of [place] arteries of extremities with intermittent claudication, bilateral legs I70.213 ; Venous insufficiency (chronic) (peripheral) I87.2 and Acquired keratosis [keratoderma] palmaris et plantaris L85.[address] [id number] 05/05/2024 KATHRIN SNOOK Tinea unguium B35.1 ; Pain in right foot M79.671 ; Pain in left foot M79.672 ; Atherosclerosis of [place] arteries of extremities with intermittent claudication, bilateral legs I70.213 and Acquired keratosis [keratoderma] palmaris et plantaris L85.1 Assessments Encounter Date Diagnosis (ICD Code) Assessment Notes Treatment Notes Treatment Clinical Notes Section Notes 10/22/2023 Other hammer toe(s) (acquired), right foot (ICD-10 - M20.41) The patient was educated regarding how to mechanically stabilize their deformity. The patient was given education about shoe recommendations specific for the condition. The patient was educated about custom orthotics and how appropriate shoes and orthotics can prevent further worsening of the deformity. The patient was educated about how bad shoe habits can worsen the condition. NSAIDS, P.T., injections and other conservative treatments were discussed. Both surgical and non surgical treatments were discussed, but conservative options were emphasized. 10/22/2023 Unspecified atherosclerosis of [place] arteries of extremities, bilateral legs (ICD-10 - I70.203) Patient educated on risks and aggravating factors of PVD, including conservative treatment options such as a diet and exercise regimen to aid in slowing progression of vascular disease 12/24/2023 Tinea unguium (ICD-10 - B35.1) Aseptic debridement of elongated thickened nails x 10 using sterile nippers, nails were debrided in length and thickness by 30% utilizing a nail nipper without incident. The patient was educated regarding all treatment options that include topical and oral antifungal treatments. I discussed the options of taking a sample of the nail to confirm diagnosis. Nail clippings were not sent for pathology analysis. The patient was educated why and how the fungal infection evolved in their feet and the patient was given information regarding how to prevent further infection. The patient was told to keep feet dry and change socks. The patient was told to be careful with old shoes and excessive sweating. The patient was educated regarding both OTC and prescription treatments. 12/24/2023 Other hammer toe(s) (acquired), right foot (ICD-10 - M20.41) The patient was educated regarding how to mechanically stabilize their deformity. The patient was given education about shoe recommendations specific for the condition. The patient was educated about custom orthotics and how appropriate shoes and orthotics can prevent further worsening of the deformity. The patient was educated about how bad shoe habits can worsen the condition. NSAIDS, P.T., injections and other conservative treatments were discussed. Both surgical and non surgical treatments were discussed, but conservative options were emphasized. 03/03/2024 Tinea unguium (ICD-10 - B35.1) Nails 1-5 Bilateral were debrided extensively with nail nippers and emery board, reducing length and girth to pink healthy tissue with any subungual debris and necrotic tissue removed 03/03/2024 Pain in right foot (ICD-10 - M79.671) 05/05/2024 Tinea unguium (ICD-10 - B35.1) Nails 1-5 Bilateral were debrided extensively with nail nippers and emery board, reducing length and girth to pink healthy tissue with any subungual debris and necrotic tissue removed 05/05/2024 Pain in right foot (ICD-10 - M79.671) 08/11/2024 Tinea unguium (ICD-10 - B35.1) Nails 1-5 Bilateral were debrided extensively with nail nippers and emery board, reducing length and girth to pink healthy tissue with any subungual debris and necrotic tissue removed 08/11/2024 Pain in right foot (ICD-10 - M79.671) 08/11/2024 Pain in left foot (ICD-10 - M79.672) 05/05/2024 Pain in left foot (ICD-10 - M79.672) 03/03/2024 Pain in left foot (ICD-10 - M79.672) 12/24/2023 Other hammer toe(s) (acquired), left foot (ICD-10 - M20.42) 10/22/2023 Other hammer toe(s) (acquired), left foot (ICD-10 - M20.42) 12/24/2023 Pain in right toe(s) (ICD-10 - M79.674) 03/03/2024 Atherosclerosis of [place] arteries of extremities with intermittent claudication, bilateral legs (ICD-10 - I70.213) 05/05/2024 Atherosclerosis of [place] arteries of extremities with intermittent claudication, bilateral legs (ICD-10 - I70.213) 08/11/2024 Atherosclerosis of [place] arteries of extremities with intermittent claudication, bilateral legs (ICD-10 - I70.213) Check and protect LE bilateral daily. Call if any changes or concerns 10/22/2023 Tinea unguium (ICD-10 - B35.1) Aseptic debridement of elongated thickened nails x 10 using sterile nippers, nails were debrided in length and thickness by 30% utilizing a nail nipper without incident. The patient was educated regarding all treatment options that include topical and oral antifungal treatments. I discussed the options of taking a sample of the nail to confirm diagnosis. Nail clippings were not sent for pathology analysis. The patient was educated why and how the fungal infection evolved in their feet and the patient was given information regarding how to prevent further infection. The patient was told to keep feet dry and change socks. The patient was told to be careful with old shoes and excessive sweating. The patient was educated regarding both OTC and prescription treatments. 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 Recommendation for periodic elevation of feet and lower legs through the day. Recommend support compression hose. Recommend dietary restrictions salt intake. Followup with family physician for potential diuretic management if needed. 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 Call for early return to office if rash does not resolve in the next 2 weeks. 08/11/2024 Localized edema (ICD-10 - R60.0) Edema Recommendations: Advised patient on edema treatment recommendations. Recommendation for periodic elevation of feet and lower legs through the day. Recommend support compression hose. Recommend dietary restrictions salt intake. Followup with family physician for potential diuretic management if needed. 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 After removal of overlying extensive hyperkeratosis, healthy tissue was noted and care was taken to assure that no undermining or probing was present. It should be noted that no probing was noted and no infection or drainage was noted. 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 After removal of overlying extensive hyperkeratosis, healthy tissue was noted and care was taken to assure that no undermining or probing was present. It should be noted that no probing was noted and no infection or drainage was noted. Plan Of Treatment Next Appt Details Provider Name:FRAN JEAN BAPTISTE, 10/13/2024 08:50:00 AM, [address] [place] [address], [phone], Insurance Providers Payer Name Payer Address Payer Phone Subscriber Number Group Number Insured Name Patient Relationship to Insured Coverage Start Date Coverage End Date Medicare Part B [place] [address] [place] [id number] Marco Markham Self - patient is the insured [facility] ([facility]) ATTN CLAIMS [address] [place] [address] [id number] Marco Markham Self - patient is the insured Medical (General) History Medical History History ICD Code anemia Cancer high blood pressure
--- OUTSIDE RECORDS SUMMARY | 2024-09-16 14:16 | XMS_ITS | Clinical Summary ---
Author Organization [facility] Address [address] [place] [address] Care Team Providers Care Lugger Name Role Phone Krishan Jurado DO Primary Care Provider [phone] Social History Tobacco Use Types Packs/Day Years Used Date Smoking Tobacco: Never Assessed Sex and Gender Information Value Date Recorded Sex Assigned at Not on file Legal Sex Male 8:00 PM CDT Gender Identity Not on file Sexual Orientation Not on file Last Filed Vital Signs Vital Sign Reading Time Taken Comments Blood Pressure 146/76 04/13/2013 8:03 AM STEEPLE JACK Pulse 87 04/13/2013 8:03 AM STEEPLE JACK Temperature - - Respiratory Rate - - Oxygen Saturation - - Inhaled Oxygen Concentration - - Weight 101.6 kg (224 lb) 04/13/2013 8:03 AM STEEPLE JACK Height 186.7 cm (6' 1.5) 04/13/2013 8:03 AM STEEPLE JACK Body Mass Index 29.15 04/13/2013 8:03 AM STEEPLE JACK Plan of Treatment Health Maintenance Due Date Last Done Comments DTaP, Tdap and Td Vaccines (1 - Tdap) 06/30/1963 Zoster Vaccines (1 of 2) 1994 Annual Medicare Wellness Visit 2009 RSV Immunization or 60+ Years (1 - 1-dose 75+ series) 06/30/2019 COVID-19 Vaccine ( season) 2023 12/26/2021, 06/21/2021, 12/26/2020, Additional history exists Pneumococcal Vaccine: 50+ Years Completed 12/27/2016, 12/21/2015 Meningococcal B Vaccine Aged Out No l onger eligible based on patient's age to complete this topic Meningococcal Vaccine Aged Out No deirdre gareth eligible based on patient's age to complete this topic RSV Immunizations Under 20 Months Aged Out No longer eligible based on patient's age to complete this topic Insurance MEDICARE [facility] Care Teams Lugger Relationship Specialty Start Date End Date Krishan Jurado DO [address] [place] [address] PCP - General FAMILY PRACTICE 01/14/22
--- OUTSIDE RECORDS SUMMARY | 2024-09-16 14:17 | XMS_ITS ---
Author Organization [facility] Address [address] [place], [place] [id number] Care Team Providers Care Analytical Lab Analyst Name Role Phone KATHRIN MARIN Unavailable [phone] Krishan Jurado Unavailable Unavailable FRAN TEAGUE Unavailable [phone] REASON FOR VISIT *General care, poison harjit Medications Medication SIG (Take, Route, Frequency, Duration) Notes Start Date End Date Status Glucosamine-Chondroitin 250-200 MG as directed Orally Active amLODIPine Benzoate 1 MG/ML 5 mL Orally Once a day Active Cholecalciferol 25 MCG (1000 UT) 1 capsule Orally Once a day Active Aspirin 81 81 MG 1 tablet Orally Once a day Active Furosemide 20 MG 1 tablet Orally Once a day Active Klor-Con M20 20 MEQ 1 tablet with food Orally Once a day Active Multivitamin - 1 tablet Orally Once a day Active Minoxidil 2.5 MG 1 tablet Orally Twic e a day Active Telmisartan 80 MG 1 tablet Orally Once a day Active Vital Signs Weight 200 lbs 08/11/2024 Weight-kg 90.72 kg 08/11/2024 Encounters Encounter Location Date Provider Diagnosis [address] [id number] 08/11/2024 FRAN TEAGUE Tinea unguium B35.1 ; Pain in right foot M79.671 ; Pain in left foot M79.672 ; Atherosclerosis of [place] arteries of extremities with intermittent claudication, bilateral legs I70.213 ; Acquired keratosis [keratoderma] palmaris et plantaris L85.1 ; Allergic contact dermatitis due to plants, except food L23.7 and Localized edema R60.0 Assessments Encounter Date Diagnosis (ICD Code) Assessment Notes Treatment Notes Treatment Clinical Notes Section Notes 08/11/2024 Tinea unguium (ICD-10 - B35.1) Nails 1-5 Bilateral were debrided extensively with nail nippers and emery board, reducing length and girth to pink healthy tissue with any subungual debris and necrotic tissue removed 08/11/2024 Pain in right foot (ICD-10 - M79.671) 08/11/2024 Pain in left foot (ICD-10 - M79.672) 08/11/2024 Atherosclerosis of [place] arteries of extremities with intermittent claudication, bilateral legs (ICD-10 - I70.213) Check and protect LE bilateral daily. Call if any changes or concerns 08/11/2024 Acquired keratosis [keratoderma] palmaris et plantaris [...] physician for potential diuretic management if needed. Plan Of Treatment Treatment Notes Assessment Notes Tinea unguium Nails 1-5 Bilateral were debrided extensively with nail nippers and emery board, reducing length and girth to pink healthy tissue with any subungual debris and necrotic tissue removed Atherosclerosis of [place] ar teries of extremities with intermittent claudication, bilateral legs Check and protect LE bilateral daily. Call if any changes or concerns Acquired keratosis [keratode rma] palmaris et plantaris A total of 2 corns or calluses, as described in the note above, were cut and pared utilizing a #15 blade Allergic contact dermatitis due to plants, except food Apply calamine lotion with gloved hand daily for 2 weeks. Call for early return to office if rash does not resolve in the next 2 weeks. Localized edema Edema Recommendations: Advised patient on edema treatment recommendations. Recommendation for periodic elevation of feet and lower legs through the day. Recommend support compression hose. Recommend dietary restrictions salt intake. Followup with family physician for potential diuretic management if needed. Next Appt Details Provider Name:FRAN JEAN BAPTISTE, 10/13/2024 08:50:00 AM, [address] [place] [address], [phone], Progress Notes * Marco SÁNCHEZDOB:1945 ([age] yo M)Acc No.[id number]:08/11/2024 Patient: Marco ALCAZAR Provider: Martha TEAGUE :1945 A ge:79 Y S ex:Male Date:08/11/2024 Address:[address] [place], [place] [id number] Subjective: * Chief Complaints: * 1 . *General care. 2. Poison harjit. * HPI: H PI: General care Licha jauregui presents to the office for at risk foot care. Patient states that their nails are thickened, elongated and painful. Patient states that it is aggravated by shoe gear. Onset is gradual. Patient denies being diabetic., Patient denies taking blood thinners., Date last seen by Dr. Jurado was within the last 6 months., Initials mca. N ew Complaint Licha jauregui complains of a new issue to bilateral legs and arms. Rash that began after exposure to poison harjit. Present for 3 weeks. Very itchy but topical anti itch cream is helping. He also has increase in edema bilateral legs. . * ROS: G eneral / Constitutional: Patient denies w eakness. M usculoskeletal: Patient complains of h ammertoes, arch pain. ? P eripheral Vascular: Patient denies b lanching of skin, cold extremities, decreased sensation in extremities. S kin: Patient complains of c alluses and corns, nail changes.? N eurologic: Patient denies d izziness, gait abnormality, headache. * Medical History: A nemia, Cancer, High blood pressure. * Medications: T aking Telmisartan 80 MG Tablet 1 tablet Orally Once a day , Taking Multivitamin - Tablet 1 tablet Orally Once a day , Taking Minoxidil 2.5 MG Tablet 1 tablet Orally Twice a day , Taking Klor-Con M20 20 MEQ Tablet Extended Release 1 tablet with food Orally Once a day , Taking Glucosamine-Chondroitin 250-200 MG Capsule as directed Orally , Taking Furosemide 20 MG Tablet 1 tablet Orally Once a day , Taking Cholecalciferol 25 MCG (1000 UT) Capsule 1 capsule Orally Once a day , Taking Aspirin 81 81 MG Tablet Delayed Release 1 tablet Orally Once a day , Taking amLODIPine Benzoate 1 MG/ML Suspension 5 mL Orally Once a day , Medication List reviewed and reconciled with the patient Objective: * Vitals: S hoe Size: 13, Wt: 200 lbs, Wt-k.72 kg. * Examination: P hysical Examination: General appearance: A lert, pleasant, well-nourished and in no acute distress. D ermatologic: Skin findings: S kin is thin, atrophic and lacking pedal hair A red, bumpy, pruritic rash with a minimal amount of serous fluid-filled blisters is noted in islands to both LE from above sock line to just below tibial tuberosity. A small amount of yellow tinged c rust over right anterior mid tibial rash noted. No streaking, no heat, no fluctuance to deep tissue. no pain on palpation. . Hypertrophic / hyperkeratotic lesion: d istal tip of the left 3rd digit, lateral aspect of left 1st digit. Nail pathology: N ails 1, 2, 3, 4, and 5 bilateral are elongated, thick, discolored, and dystrophic with subungual debris. They are painful to palpation. ? V ascular: Dorsalis pedis pulse: 1 /4 b ilateral. Posterior tibial pulse: 0 /4 bilateral. Capillary refill: g reater than 3 seconds. Edema: + 3 pitting edema. Calves loose and nontender bilateral. N eurologic: Gross sensation G rossly intact to light touch. There is negative Tinel's sign. M usculoskeletal: Muscle Strength M uscle strength is 5/5 in regards to dorsiflexion, plantarflexion, inversion, and eversion in bilateral lower extremities. ? Assessment: * Assessment: 1. T marcin ramon - B35.1 (Primary) 2 . P ain in right foot - M79.671 ? 3 . P ain in left foot - M79.672 4 . A therosclerosis of [place] arteries of extremities with intermittent claudication, bilateral legs - I70.213 5 . Acquired keratosis [keratoderma] palmaris et plantaris - L85.1 6 . A llergic contact dermatitis due to plants, except food - L23.7 7 . L ocalized edema - R60.0 Plan: * Treatment: 2. A therosclerosis of [place] arteries of extremities with intermittent claudication, bilateral legs Notes: Check and protect LE bilateral daily. Call if any changes or concerns 3. A cquired keratosis [keratoderma] palmaris et plantaris Notes: A total of 2 corns or calluses, as described in the note above, were cut and pared utilizing a #15 blade 4. A llergic contact dermatitis due to plants, except food Notes: Apply calamine lotion with gloved hand daily for 2 weeks. Call for early return to office if rash does not resolve in the next 2 weeks. 5. L ocalized edema Notes: Edema Recommendations: Advised patient on edema treatment recommendations. Recommendation for periodic elevation of feet and lower legs through the day. Recommend support compression hose. Recommend dietary restrictions salt intake. Followup with family physician for potential diuretic management if needed. * Immunizations: Immunization record has been reviewed and updated. * Procedure Codes: 1 1721 DEBRIDE NAIL, 6 OR MORE, Modifiers: Q8 * Billing Information: * Visit Code: * Procedure Codes: 24730 DEBRIDE NAIL, 6 OR MORE. Modifiers: Q8 * Electronic signature of RAFITA TEAGUE DPM on 09/16/2024 at 02:16 PM CDT Sign off status: Pending * Provider: Martha TEAGUE Date: 0 08/11/2024 Generated for Jose Luis will/Arturo on: 0 09/16/2024 02:16 PM CDT History and Physical Notes * HPI (History of Present Illness) Category Sub-Category Detail Notes Category Not es HPI General care Patient presents to the office for at risk foot care. Patient states that their nails are thickened, elongated and painful. Patient states that it is aggravated by shoe gear. Onset is gradual. Patient denies being diabetic., Patient denies taking blood thinners., Date last seen by Dr. Jurado was within the last 6 months., Initials mca New Complaint Patient complains of a new issue to bilateral legs and arms. Rash that began after exposure to poison harjit. Present for 3 weeks. Very itchy but topical anti itch cream is helping. He also has increase in edema bilateral legs. Examination Category Sub-Category Detail Notes Category Not es Dermatologic Skin findings: Skin is thin, at rophic and lacking pedal hair A red, bumpy, pruritic rash with a minimal amount of serous fluid-filled blisters is noted in islands to both LE from above sock line to just below tibial tuberosity. A small amount of yellow tinged crust over right anterior mid tibial rash noted. No streaking, no heat, no fluctuance to deep tissue. no pain on palpation. Nail pathology: Nails 1, 2, 3, 4, an d 5 bilateral are elongated, thick, discolored, and dystrophic with subungual debris. They are painful to palpation Hypertrophic / hyperkeratotic lesion: di stal tip of the left 3rd digit, lateral aspect of left 1st digit Neurologic Gross sensation Grossly intact t o light touch. There is negative Tinel's sign Vascular Dorsalis pedis pulse: 1/4 bilateral Edema: +3 pitting edema. Ca lves loose and nontender bilateral Capillary refill: greater than 3 secon ds Posterior tibial pulse: 0/4 bilateral Physical Examination General appearance: Alert, pleasant, well-nourished and in no acute distress Musculoskeletal Muscle Strength Muscle strength is 5/5 in regards to dorsiflexion, plantarflexion, inversion, and eversion in bilateral lower extremities
--- OUTSIDE RECORDS SUMMARY | 2024-09-16 14:17 | XMS_ITS ---
Author Organization [facility] Address [address] [place], [place] [id number] Care Team Providers Care Content Writer Name Role Phone KATHRIN MARIN Unavailable [phone] Krishan Jurado Unavailable Unavailable SENIA RICHARDS Unavailable [phone] REASON FOR VISIT *General care Encounters Encounter Location Date Provider [place] [facility] [address] [id number] 03/10/2024 SENIA RICHARDS Plan Of Treatment Next Appt Details Provider Name:FRAN JEAN BAPTISTE, 10/13/2024 08:50:00 AM, [address] [place], [place], [phone], Progress Notes * Marco SÁNCHEZDOB:1945 ([age] yo M)Acc No.[id number]:03/10/2024 Patient: Marco ALCAZAR Provider: Silvestre RICHARDS :1945 A ge:78 Y S ex:Male Date:03/10/2024 Address:[address] [facility] Subjective: * Chief Complaints: * 1 . *General care. * Medical History: Objective: * Vitals: Assessment: Plan: * Treatment: * Billing Information: * Visit Code: * Procedure Codes: * Electronic signature of TRINIDAD RICHARDS DPM on 09/16/2024 at 02:16 PM CDT Sign off status: Pending * Provider: Silvestre RICHARDS Date: 0 03/10/2024 Generated for Jose Luis will/Yoana/Melisa on: 0 09/16/2024 02:16 PM CDT
[2024-09-16 14:29] LABS: Hematocrit 33.1 % (37.0-46.0); Hemoglobin 10.9 g/dL (12.4-15.3); Immature Granulocyte Percent A 0.3 % (0.0-0.0); Lymphocytes Absolute Auto 1.55 K/mm3 (1.10-4.50); Mean Corpuscular HGB Conc 32.9 g/dL (32-36); Mean Corpuscular Hemoglobin 29.7 pg (27.0-31.0); Mean Corpuscular Volume 90.2 fL (78.0-102.0); Nucleated Red Blood Cells Absolute Auto 0.00 K/mm3 (0.00-0.00); Nucleated Red Blood Cells Perc 0.0 % (0-0.0); Platelet Count Result 294 K/mm3 (150-420); Red Blood Count 3.67 M/mm3 (4.70-6.10); White Blood Count 6.2 K/mm3 (4.8-10.8)
[2024-09-16 14:50] LABS: Alanine Aminotransferase 14 U/L (6-50); Albumin Level 4.4 g/dL (3.5-5.1); Alkaline Phosphatase 69 U/L (38-126); Anion Gap 6 mmol/L (4-12); Aspartate Amino Transferase 22 U/L (17-59); Bilirubin,Total 0.8 mg/dL (0.2-1.3); Blood Urea Nitrogen 19 mg/dL (9-20); Calcium 8.7 mg/dL (8.4-10.2); Carbon Dioxide 26 mmol/L (22-30); Chloride 104 mmol/L (98-107); Cholesterol 146 mg/dL (0-200); Estimated Glomerular Filt Rate 52; Glucose 113 mg/dL (65-110); HDL Direct 55 mg/dL; Iron 63 ug/dL (49-181); Osmolality Calculated 285 mOsm/kg (285-295); Potassium 4.6 mmol/L (3.4-5.0); Sodium 136 mmol/L (137-145); Total Protein 7.1 g/dL (6.3-8.2); Triglycerides 150 mg/dL (<150)
[2024-09-16 14:59] LABS: Percent Iron Saturation 21 % (20-50)
[2024-09-16 15:21] LABS: Thyroid Stimulating Hormone Reflex 1.440 uIU/mL (0.465-4.68)
[2024-09-16 15:25] LABS: Ferritin 27.40 ng/mL (11.1-264)
== END 2024-09-16 14:14 | disposition home or self-care (01) ==
LOC: CHSLAB 14:15
PROVIDERS: PCP Family Medicine; Visit Provider Family Medicine
DX: D50.9 Iron deficiency anemia, unspecified (principal); I10 Essential (primary) hypertension; E03.9 Hypothyroidism, unspecified; D64.9 Anemia, unspecified
CPT/HCPCS: 36415; 80053; 80061; 82728; 83540; 83550; 84443; 85025